=== PATIENT | female | born 1985 | race Two or more races ===

== ENCOUNTER 2025-08-17 19:56 | Emergency (ER) | payer MEDICAID, SELFPAY ==
[2025-08-17 20:36] VITALS: BP 158/90; PULSE 89; RESP 20; TEMP 37.1; O2SAT 97; BMI 42.0
--- NOTE | 2025-08-17 20:49 | EDNOTE_ITS ---
ED Allergic Reaction RME/HPI General Chief complaint: Allergic Reaction Stated complaint: SOB, SWELLING TO THROAT, FACE Time Seen by Provider: 08/17/25 20:42 Arrival date/time: 08/17/25 19:56 39F with no significant PMH presents to ED with several hours of SOB and facial swelling after eating some food. Limitations: no limitations Related Data Previous Rx's ?Medication ?Instructions ?Recorded Benadryl 25mg 1 tab PO tid/prn allergy #12 tabs 11/27/16 ibuprofen 600 mg tablet 600 mg PO Q6HR PRN FEVER > 1 01 #30 11/27/16 tabs ferrous sulfate 325 mg (65 mg 325 mg PO BID #120 tabs 07/23/21 iron) tablet,delayed release prednisone 50 mg tablet 50 mg PO QDAY 4 days #4 tabs 08/17/25 Allergies Allergy/AdvReac Type Severity Reaction Status Date / Time shrimp Allergy Swelling Verified 08/17/25 19:58 of Lip/Tongue/Throat Review of Systems Review of Systems Systems Reviewed: All systems reviewed, normal except as documented ENT Ears, Nose, Mouth, and Throat: Reports as per HPI Integumentary/Breasts Skin/Breast: Reports as per HPI and Reports skin swelling Past Medical History Past Medical History CARDIAC: Negative Cardiac Disorders RESPIRATORY: Negative Asthma GENITOURINARY: Negative Renal Disease ENDOCRINE: Negative Diabetes Mellitus Type 2 HEMATOLOGIC: Negative Sickle Cell Disease Surgical History SURGICAL: Positive Tubal Ligation Social History SMOKING STATUS: Never smoker SUBSTANCE USE: does not use ED Exam General Limitations: Present no limitations General appearance: Present alert and in no apparent distress Head Head exam: Present atraumatic ENT ENT exam: Present normal exam, normal oropharynx and mucous membranes moist Neck Neck exam: Present normal inspection, full ROM and trachea midline Chest Chest inspection: Present normal inspection and symmetric chest wall rise Neurological Exam Neurological exam: Present alert and oriented X3 Psychiatric Psychiatric exam: Present normal affect and normal mood Skin Skin exam: Present warm, dry, intact and normal color Course Quality Measures none Orders Category Date Time Status Famotidine [Pepcid] Med 08/17/25 20:42 Discontinued 20 mg PO X1 ONE dexAMETHasone INJ [Decadron Inj] Med 08/17/25 20:42 Discontinued 10 mg PO X1 ONE predniSONE Med 08/17/25 20:42 Discontinued 20 mg PO X1 ONE Vital Signs Vital signs: Vital Signs Temperature 98.8 F 08/17/25 20:36 Pulse Rate 89 08/17/25 20:36 Respiratory Rate 20 08/17/25 20:36 Blood Pressure 158/90 H 08/17/25 20:36 Pulse Oximetry (%) 97 08/17/25 20:36 Oxygen Delivery Method Room Air 08/17/25 20:36 O2 at 97% on RA and WNLs Allergic Reaction MDM Narrative MDM Narrative:: 39F with no significant PMH presents to ED with several hours of SOB and facial swelling after eating some food. Physical exam reveals possible facial swelling, but no rash. Normal WOB. Clear oropharynx. No muffled voice. Patient is afebrile, calm, and alert. Meds improved symptoms. Patient data External records reviewed:: [facility] previous records Clinical information provided by:: patient Social determinants that could affect healthcare access:: none Patient has the following chronic illnesses:: none How is presenting disease/condition affected by chronic disease/condition?: no chronic disease Evaluation data The following diagnostics were reviewed and interpreted by me:: other (specify) (none) Lab and/or radiology exams considered but not ordered:: not ordered Interpretation Summary: n/a Medications / Prescriptions Medications or Prescriptions considered but not ordered:: ordered Medication administrations:: Medication Administration History Discontinued Medications Dexamethasone Sodium Phosphate (Dexamethasone Sod Phos Inj 10 Mg/Ml Vial) 10 mg PO X1 ONE Stop: 08/17/25 20:43 Last Admin: 08/17/25 21:19 Dose: 10 mg Documented By: Famotidine (Famotidine 20 Mg Tablet) 20 mg PO X1 ONE Stop: 08/17/25 20:43 Last Admin: 08/17/25 21:19 Dose: 20 mg Documented By: Prednisone (Prednisone 20 Mg Tablet) 20 mg PO X1 ONE Stop: 08/17/25 20:43 Last Admin: 08/17/25 21:29 Dose: Not Given Documented By: Non-Admin Reason: Medication Not Available above Consultations Consultation(s) initiated? (list below): No Diagnosis Differential Diagnosis allergic reaction: anaphylaxis, allergic reaction, angioedema, contact dermatitis, adverse reaction to drug, viral enanthem and urticaria Most likely diagnosis given after review of the tests above:: allergic reaction Admission Indicated Admission indicated?: not indicated Admission Request Was there a request for admission?: No Disposition Plan Disposition Plan: Discharge Discharge Attestation Discharge Attestation: The patient and all family members were given an opportunity to ask questions and understood the discharge instructions. Discharge instructions specifically effects, indications for sooner follow up or return to the emergency department, and the expected course of current diagnosis. Patient condition: Stable Discharge Plan Plan Patient Disposition: HOME (Self Care) Discharge Disposition comment: Stable Prescriptions/Referrals Prescriptions/Med Rec: New prednisone 50 mg tablet 50 mg PO QDAY 4 Days Qty: 4 0RF No Action ibuprofen 600 MG tablet 600 mg PO Q6HR PRN (Reason: FEVER > 101) Qty: 30 0RF Benadryl 25mg 1 tab PO tid/prn allergy Qty: 12 0RF ferrous sulfate 325 mg (65 mg iron) tablet,delayed release (DR/EC) 325 mg PO BID Qty: 120 0RF Referrals: No Primary/Family,Physician [Primary Care Provider] - In 1 week Problem List Clinical Impression: Allergic reaction Patient/Caregiver Discharge Instructions Education Materials: ED Food Allergy Additional Instructions: Please follow-up with PCP within 24-48 hours and return immediately if symptoms worsen. Take OTC antihistamine as needed until symptoms resolve. Finish entire steroid course. Print Language: Grenadian Stand Alone Forms: Patient Portal Info Letter SIMONE/RANDY Supervising Physician SIMONE/RANDY Supervising Physician: Dr. Romero
[2025-08-17] MEDS: FAMOTIDINE 20 MG TABLET PO (21:19)
== END 2025-08-17 22:25 | disposition home or self-care (01) ==
PROVIDERS: Emergency Provider Emergency Medicine
DX: T78.19XA Other adverse food reactions, not elsewhere classified, initial encounter (principal); R06.02 Shortness of breath; R22.0 Localized swelling, mass and lump, head; X58.XXXA Exposure to other specified factors, initial encounter
CPT/HCPCS: 99281; J1100; A9270